=== PATIENT | female | born 1985 | race Caucasian/White ===

== ENCOUNTER 2018-10-30 02:35 | Emergency (ER) | payer BC ==
[2018-10-30] MEDS ORDERED: Ibuprofen TAB* 600 MG PO ONE (02:51)
[2018-10-30] MEDS ORDERED: oxyCODONE/Acetamin 5/325 MG* TAB PO ONE (02:51)
--- NOTE | 2018-10-30 02:55 | ED ---
Upper Extremity Pain - HPI Summary HPI Summary: A 33 y/o female presents to [facility] with a chief complaint of left upper extremity pain since when she slipped and fell on ice, landing on her left elbow , at 22:00 10/29/18. Per triage note, the patient took advil at 02:00 10/30/18. The patient rates her pain as an 8/10 in severity. She claims that she has pain in her wrist up to her shoulder. She is unable to straighten her arm. - History of Current Complaint Chief Complaint: EDExtremityUpper Stated Complaint: ARM INJURY Time Seen by Provider: 10/30/18 02:43 Hx Obtained From: Patient Mechanism Of Injury: Fall From A Standing Position Onset/Duration: Started Hours Ago, Still Present Timing: Constant, Lasting Hours Severity Initially: Severe Severity Currently: Severe Pain Location: Other: - left wrist to her shoulder Character: Unable to Describe Aggravating Factor(s): Nothing Alleviating Factor(s): Nothing Associated Signs & Symptoms: Negative: Fever - Allergies/Home Medications Allergies/Adverse Reactions: Allergies Allergy/AdvReac Type Severity Reaction Status Date / Time No Known Allergies Allergy Verified 10/30/18 02:41 PMH/Surg Hx/FS Hx/Imm Hx Endocrine/Hematology History: Denies: Hx Diabetes Cardiovascular History: Denies: Hx Hypertension - Surgical History Surgery Procedure, Year, and Place: None reported Infectious Disease History: No Infectious Disease History: Denies: Traveled Outside the [place] in Last 30 Days - Family History Known Family History: Positive: Diabetes - paternal grandmother Negative: Hypertension - Social History Alcohol Use: None Hx Substance Use: No Substance Use Type: Reports: None Hx Tobacco Use: No Smoking Status (MU): Never Smoked Tobacco Review of Systems Negative: Fever Positive: Arthralgia - left wrist up to shoulder, Myalgia - left wrist up to shoulder All Other Systems Reviewed And Are Negative: Yes Physical Exam - Summary Physical Exam Summary: VITAL SIGNS: Reviewed. GENERAL: Patient is a well-developed and nourished FEMALE who is lying comfortable in the stretcher. Patient is not in any acute respiratory distress. HEAD AND FACE: No signs of trauma. No ecchymosis, hematomas or skull depressions. No sinus tenderness. EYES: PERRLA, EOMI x 2, No injected conjunctiva, no nystagmus. EARS: Hearing grossly intact. Ear canals and tympanic membranes are within normal limits. MOUTH: Oropharynx within normal limits. NECK: Supple, trachea is midline, no adenopathy, no JVD, no carotid bruit, no c- spine tenderness, neck with full ROM. CHEST: Symmetric, no tenderness at palpation LUNGS: Clear to auscultation bilaterally. No wheezing or crackles. CVS: Regular rate and rhythm, S1 and S2 present, no murmurs or gallops appreciated. ABDOMEN: Soft, non-tender. No signs of distention. No rebound no guarding, and no masses palpated. Bowel sounds are normal. EXTREMITIES: LUE 90 degrees at elbow tender all the way from shoulder to wrist. no edema, no cyanosis or clubbing. NEURO: Alert and oriented x 3. No acute neurological deficits. Speech is normal and follows commands. SKIN: Dry and warm Triage Information Reviewed: Yes Vital Signs On Initial Exam: Initial Vitals Temp Pulse Resp BP Pulse Ox 98.5 F 76 16 125/70 98 10/30/18 02:37 10/30/18 02:37 10/30/18 02:37 10/30/18 02:37 10/30/18 02:37 Vital Signs Reviewed: Yes Procedures - Splinting Left Upper Extremity Hand-Made Type: orthoglass Splint: splint applied left arm extending from wrist to the mid upper arm, elbow is on 90 degrees Pre-Proc Neuro Vasc Exam: normal Post-Proc Neuro Vasc Exam: normal Diagnostics - Vital Signs Vital Signs Temp Pulse Resp BP Pulse Ox 10/30/18 02:37 98.5 F 76 16 125/70 98 - Laboratory Lab Statement: Any lab studies that have been ordered have been reviewed, and results considered in the medical decision making process. - Radiology elbow x-ray Radiology Interpretation Completed By: ED Physician Summary of Radiographic Findings: nondisplaced fracture of radial head. Pending official imaging report. humerus x-ray Radiology Interpretation Completed By: ED Physician Summary of Radiographic Findings: no fracture. Pending official imaging report. forearm x-ray Radiology Interpretation Completed By: ED Physician Summary of Radiographic Findings: no fracture. Pending official imaging report. wrist x-ray Radiology Interpretation Completed By: ED Physician Summary of Radiographic Findings: no fracture. Pending official imaging report. Re-Evaluation - Re-Evaluation First Eval Re-Evaluation Time: 03:35 Change: Improved Comment: splint procedure Course/Dx - Course Course Of Treatment: A 33 y/o female presents to [facility] with a chief complaint of left upper extremity pain since when she slipped and fell on ice, landing on her left elbow, at 22:00 10/29/18. The physical exam revealed that her LUE 90 degrees at elbow tender all the way from shoulder to wrist. In the ED course the patient was given 600mg Motrin PO and Percocet PO. Her left elbow x-ray showed nondisplaced fracture of radial head. Her humerus x-ray, wrist x-ray and forearm x-ray all showed no fracture. Performed a splint application procedure, used ortho glass, splint applied left arm extending from wrist to the mid upper arm, elbow is on 90 degrees. Patients neurovascular exam was intact pre and post application. The patient will be discharged with a prescription for Percocet. The patient was instructed to follow up with lidia Ibanez, today or tomorrow. She is agreeable with this plan. - Diagnoses Provider Diagnoses: Left radial head fracture Discharge - Sign-Out/Discharge Documenting (check all that apply): Patient Departure - DC Patient Received Moderate/Deep Sedation with Procedure: No - Discharge Plan Condition: Stable Disposition: HOME Prescriptions: oxyCODONE/Acetamin 5/325 MG* [Percocet 5/325 TAB*] 1 tab PO Q6H PRN #10 tab MDD 4 PRN Reason: Pain Patient Education Materials: Splint Care (ED) Referrals: Jacob Coleman MD [Medical Doctor] - (1-2 days) Additional Instructions: Follow up with shara Ibanez, today or tomorrow. RETURN TO THE EMERGENCY DEPARTMENT FOR CHANGING OR WORSENING SYMPTOMS. FOLLOW UP WITH PCP IN 1-2 DAYS. - Billing Disposition and Condition Condition: STABLE Disposition: Home - Attestation Statements Document Initiated by Scribe: Yes Documenting Scribe: Felipe Sharma Provider For Whom Kris is Documenting (Include Credential): Colleen Lora MD Scribe Attestation: Felipe Suarez scribed for Colleen Lora MD on 10/30/18 at 0552. Scribe Documentation Reviewed: Yes Provider Attestation: The documentation as recorded by the scribe, Felipe DesRochers accurately reflects the service I personally performed and the decisions made by me, Colleen Lora MD Status of Scribe Document: Viewed
--- OUTSIDE RECORDS SUMMARY | 2018-10-30 03:14 | XMS REPORT | Continuity of Care Document ---
:1985 External Reference #:[id number] Author Name Sona Jeffers M.D. Address [address] [place] [address] Care Team Providers Name Role Phone Sona Jeffers M.D. Care Team Information Voip Network Technician Unavailable Sona Jeffers M.D. Primary Care Physician Unavailable Payers Type Date Identification Numbers Payment Provider Subscriber Effective: 2017 Policy Number: [id number] [employer] Leigh Webb PayID: [id number] [address] [place] [address] Advance Directives Description No Information Available Problems Date Description Provider Status Onset: 09/08/2018 Anorexia nervosa Sona Jeffers M.D. Active Onset: 10/13/2018 Osteoporosis Sona Jeffers M.D. Active Onset: 10/13/2018 Premenopausal idiopathic osteoporosis Sona Jeffers M.D. Active Family History Date Family Member(s) Problem(s) Comments Father No Current Problems Mother Hypothyroidism Siblings 2 Paternal Grandfather due to COPD () Paternal Grandmother Alzheimer's Disease Paternal Grandmother Diabetes Mellitus, II Maternal Grandfather due to Spine injury () Maternal Grandfather Alcoholism Maternal Grandmother Alcoholism Maternal Grandmother Lung Cancer Maternal Grandmother Eating Disorder Aunt Breast Cancer Social History Type Date Description Comments Sex Unknown Education Highest level completed, Doctorate Lives With Boyfriend Diet Healthy, Well Balanced Sleep Reports normal sleep activity Pets 1 cat 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 [employer] Tobacco Use Start: Unknown Nonsmoker ETOH Use Rare Tobacco Use Start: Unknown End: Patient is a former social smoker in 20s Unknown smoker Smoking Status Reviewed: 10/13/18 Patient is a former social smoker in 20s smoker Exercise Exercises regularly walks daily about 5 Type/Frequency miles Allergies, Adverse Reactions, Alerts Description No Known Drug Allergies Medications Medication Date Status Form Strength Qnty SIG Indications Ordering Provider Fish Oil Active Capsules 500mg 1 by mouth Unknown 000 every day Vitamin D3 Active Capsules 2000Unit 1 by mouth Unknown 000 every day Active Tablets 1 po qd Unknown 000 Flaxseed Oil Active Capsules 1000mg 1 by mouth Unknown 000 every day Zinc Active Capsules 1 po qd Unknown 000 Calm Active Liquid 1 tsp Unknown 000 dissolved in liquid qd (magnesium supplement) Medrol Hx TBPK 4mg 1units take dose R21 Susie Allie 019 - pack as Masoud, directed CURB SETTER 019 Alyacen 1/35 Hx Tablets 1-35mg-mcg Unknown 000 - 019 Multi For Her Hx Capsules 1 by mouth Unknown 000 - daily. 019 Calcium 1000 Hx Tablets 1000-800mg 1 by mouth Unknown + D 000 - -Unit every day 019 Immunizations Description No Information Available Vital Signs Date Vital Result Comment 10/13/2018 6:21pm BP Systolic 94 mmHg BP Diastolic 60 mmHg Heart Rate 78 /min Body Temperature 98.2 F Respiratory Rate 16 /min Height 67.25 inches 5'7.25" Weight 117.12 lb BMI (Body Mass Index) 18.2 kg/m2 09/26/2018 10:24am BP Systolic 90 mmHg BP Diastolic 54 mmHg Heart Rate 84 /min Body Temperature 98.4 F Respiratory Rate 16 /min Height 67.25 inches 5'7.25" Weight 114.00 lb BMI (Body Mass Index) 17.7 kg/m2 03/28/2018 1:03pm BP Systolic 90 mmHg BP Diastolic 60 mmHg Heart Rate 76 /min Body Temperature 98.6 F Respiratory Rate 16 /min Height 67.25 inches 5'7.25" Weight 110.00 lb BMI (Body Mass Index) 17.1 kg/m2 12/27/2017 11:10am BP Systolic 96 mmHg BP Diastolic 50 mmHg Heart Rate 78 /min Body Temperature 98.2 F Respiratory Rate 17 /min Height 67.25 inches 5'7.25" Weight 105.00 lb BMI (Body Mass Index) 16.3 kg/m2 Right Visual Acuity Distance 20/40 Left Visual Acuity Distance 20/25 Results Test Date Facility Test Result H/L Range Note Creatinine, 07/07/2018 [facility] Creatinine, 23.0 mg/dL Not Estab. 1 24-Hour Urine [address] [facility] [place] [address] (607)- - Creatinine, Ur 24hr 1035 mg/24hr 800-1800 Calcium, 24HR 07/07/2018 [facility] Calcium, Urine 6.8 mg/dL Not Estab. Urine [address] [place] [address] (607)- - Calcium, Urine 24hr 306.0 mg/24hr High 100.0-300.0 Laboratory test 07/07/2018 [facility] ([facility]) Phosphorus 4.5 mg/dL 2.5 -4.8 finding Creatinine 0.6 mg/dL 0.6-1.4 Laboratory test finding 03/31/2018 [facility] ([facility]) TSH 0.83 mIU/L 0.50-6.00 Comprehensive Metabolic 03/31/2018 [facility] ([facility]) Sodium 136 mEq/L 134-149 Prof Potassium 4.3 mEq/L 3.6-5.5 Chloride 102 mEq/L 94-112 Carbon Dioxide 27 mEq/L 21-32 Glucose 99 mg/dL 70-105 BUN 10 mg/dL 6-26 Creatinine 0.7 mg/dL 0.6-1.4 BUN/Creat Ratio 14.3 CALC 8.0-36.0 Calcium 8.7 mg/dL 8.6-10.2 Total Protein 6.6 g/dL 6.4-8.3 Albumin 4.1 g/dL 3.8-5.5 Globulin 2.5 g/dL 2.0-4.8 A/G Ratio 1.6 CALC 0.6-2.3 Alk. Phosphatase 38 U/L 30-110 Alt (SGPT) 12 U/L 7-35 Ast (Sgot) 15 U/L 5-34 Total Bilirubin 0.3 mg/dL 0.2-1.3 GFR Non- >60 ml/min/1.73m^ >=60 GFR >60 ml/min/1.73m^ >=60 Ua - Micro (Fma) 03/28/2018 [facility] Appearance CLEAR (607)- - Color YELLOW Glucose, Urine (Fma/CMC/CTX) NEG Bilirubin NEG Ketones NEG SP Grav 1.010 Blood NEG PH 5.5 Protein NEG Urobil 0.2 Nitrite NEG Leukocytes (Fma/CMC/Centrex) NEG Hyaline - /Lpf Granular - /Lpf WBC (Fma,[facility]rex) 0-1 # RBC - Mucus - /Lpf Epith RARE /Lpf # Bacteria TRACE /Hpf # Amorphous - /Lpf Crystals, Fluid (Fma/CMC/CTX) - Z#Comments - Laboratory test finding 12/27/2017 [facility] ([facility]) TSH 0.70 mIU/L 0.50-6.00 Free T4 0.91 ng/dL 0.75-1.54 Free T3 1.61 pg/mL Low 2.00-4.90 2 Ua - Micro (Fma) 12/27/2017 [facility] Appearance clear (607)- - Color yellow Glucose, Urine (Fma/CMC/CTX) neg Bilirubin neg Ketones neg SP Grav 1.010 Blood neg PH 7.0 Protein neg Urobil 0.2 Nitrite neg Leukocytes (Fma/CMC/Centrex) neg Hyaline - /Lpf Granular - /Lpf WBC (Fma,[facility]rex) 0-1 # RBC - Mucus (Fma/CBC/Centrex) - /Lpf Epith rare /Lpf # 1 2 24HR URINE COLLECTION J UGS 6N HCL 2 RESULTS VERIFIED BY REPEAT ANALYSIS Procedures Date Code Description Status 03/31/2018 96878 Dxa Bone Density Study One Or More Sites Axial Skeleton Completed 12/27/2017 45623 Vision Test- screening test of visual acuity, Completed quantitative, bila Encounters Type Date Location Provider Dx Diagnosis Office Visit 09/26/2018 Main Office Susie Kelley R21 Rash and other 10:15a SABINA Meredith nonspecific skin eruption Office Visit 03/28/2018 Main Office Susie Kelley R63.6 Underweight 1:00p SABINA Meredith Z13.820 Encounter for screening for osteoporosis R30.0 Dysuria Office Visit 12/27/2017 10:45a Main Office DURAN Cruz R30.0 Dysuria Z83.49 Family history of endo, nutritional and metabolic diseases Plan of Treatment 10/13/2018 - Sona Jeffers M.D.Z00.00 Encounter for general adult medical examination without abnormal findingsNew Labs:CBC Electronic-[facility], Ordered: 10/13/18Comp Metabolic-[facility], Ordered: 10/13/18Lipid Panel- [facility], Ordered: 10/13/18Ua - Non Micro (Fma), Ordered: 10/13/18TSH ( [facility]), Ordered: 10/13/18Comments:Encourage an active and healthy lifestyle with proper eating habits including fruits, vegetables, 6-8 glasses of water a day and monitoring portion size. Recommend 30 minutes of daily physical activityincluding walking, aerobic exercise, sports, yoga or dance. Any activity is better than no activity.Recommend routine eye and dental exams. Next physical is due in 1-2 years.Follow up:fasting labsR63.6 UnderweightComments:continue yuvtacfA41.8 Other osteoporosis without current pathological fractureNew Labs:Vitamin D, 25Hydroxy(a/LC, Ordered: Magnesium ([facility]), Ordered: 10/13/18Phosphorus, Ordered: Comments:seeing specialists ; dexa due 03/20192868P25.10 Unspecified dyspareuniaComments:consider pelvic PT; cannot take ocp currently due to osteoporosis and trying pregnancyAllComments:~B_~U_Medication Management~b_~u_ Patient Understands medications she's taking? Yes No Are there Barriers to Adherence? Yes No Has the patient been asked about herbal supplements and therapies, and OTC meds? Yes No
[2018-10-30 04:20] VITALS: BP 121/87
== END 2018-10-30 04:18 | disposition home or self-care (01) ==
LOC: ED 02:35
DX: S52.122A Displaced fracture of head of left radius, initial encounter for closed fracture (principal); M25.522 Pain in left elbow; W00.0XXA Fall on same level due to ice and snow, initial encounter; Y92.9 Unspecified place or not applicable; M25.512 Pain in left shoulder
CPT/HCPCS: 99282; A9270-GY

== ENCOUNTER 2019-11-04 11:17 | Emergency (ER) | payer BC ==
--- OUTSIDE RECORDS SUMMARY | 2019-11-04 11:40 | XMS REPORT | Continuity of Care Document ---
:1985 External Reference #:[id number] Author Name Sona Jeffers M.D. Address [address] [place] [address] Care Team Providers Name Role Phone Sona Jeffers M.D. - Family Medicine Care Team Information Unit Aide Tech [phone] Problems Active Problems Provider Date Anorexia nervosa Sona Jeffers M.D. Onset: 09/08/2018 Osteoporosis Sona Jeffers M.D. Onset: 10/13/2018 Anxiety state Sona Jeffers M.D. Onset: 05/26/2019 Premenopausal idiopathic osteoporosis Sona Jeffers M.D. Onset: 10/13/2018 Social History Type Date Description Comments Sex Unknown Tobacco Use Start: Unknown Nonsmoker ETOH Use Rare Tobacco Use Start: Unknown End: Patient is a former social smoker in 20s Unknown smoker Smoking Status Reviewed: 10/06/19 Patient is a former social smoker in 20s smoker Exercise Exercises regularly walks daily about 5 Type/Frequency miles Allergies, Adverse Reactions, Alerts Description No Known Drug Allergies Medications Active Medications SIG Qnty Indications Ordering Provider Date Fish Oil 1 by mouth every Unknown 500mg Capsules day Vitamin D3 1 by mouth every Unknown 2000Unit day Capsules 1 po qd Unknown Tablets Calm 1 tsp dissolved in Unknown Liquid liquid qd (magnesium supplement) Calcium Unknown Methyl Folate Unknown History Medications Azithromycin z tushar as 6tabs J20.9 Susie Kelley 10/06/2019 - 250mg directed, 2 tabs SABINA Meredith 10/13/2019 Tablets day one, one tab day 2-5 Tessalon Perles take 2 tablets 30caps J20.9 Susie Ann 10/06/2019 - 100mg every 8 hours as SABINA Meredith 10/13/2019 Capsules needed for cough Alyacen 1/35 Take 1 Tablet By 84tabs Sona Jeffers, 05/26/2019 - 1-35mg-mcg Mouth Every Day M.D. 10/06/2019 Tablets Immunizations CPT Code Status Date Vaccine Lot # [id number] Given 08/14/2019 Influenza vac quadrivalent preservative free 6 [id number] months and up Vital Signs Date Vital Result Comment 10/26/2019 7:16pm BP Systolic 98 mmHg BP Diastolic 60 mmHg Heart Rate 72 /min Body Temperature 98.1 F Respiratory Rate 16 /min Height 67 inches 5'7" per pt Weight 113.12 lb BMI (Body Mass Index) 17.7 kg/m2 10/06/2019 8:59am BP Systolic 92 mmHg BP Diastolic 62 mmHg Heart Rate 100 /min Body Temperature 98.6 F Respiratory Rate 16 /min Height 67 inches 5'7" per pt Weight 114.00 lb BMI (Body Mass Index) 17.9 kg/m2 Results Description No Information Available Procedures Date Code Description Status 04/27/2019 05148 Dxa Bone Density Study One Or More Sites Axial Skeleton Completed Medical Devices Description No Information Available Encounters Type Date Location Provider Dx Diagnosis Office Visit 10/06/2019 Main Office Susie Kelley J20.9 Acute bronchitis, 9:00a SABINA Meredith unspecified Office Visit 05/26/2019 Main Office Sona Jeffers M.D. M81.8 Other osteoporosis 3:40p without current pathological fracture R63.6 Underweight Z30.09 Encounter for oth general coun and advice on contraception F41.9 Anxiety disorder, unspecified Assessments Date Code Description Provider 10/26/2019 M81.8 Other osteoporosis without current Sona Jeffers M.D. pathological fracture 10/26/2019 R63.6 Underweight Sona Jeffers M.D. 10/26/2019 Z33.1 state, incidental Sona Jeffers M.D. 10/06/2019 J20.9 Acute bronchitis, unspecified Susie Meredith NP 08/14/2019 Z23 Encounter for immunization Sona Jeffers M.D. 05/26/2019 M81.8 Other osteoporosis without current Sona Jeffers M.D. pathological fracture 05/26/2019 R63.6 Underweight Sona Jeffers M.D. 05/26/2019 Z30.09 Encounter for other general counseling and Sona Jeffers M.D. advice on contraception 05/26/2019 F41.9 Anxiety disorder, unspecified Sona Jeffers M.D. 04/27/2019 M81.8 Other osteoporosis without current Sona Jeffers M.D. pathological fracture Plan of Treatment 10/26/2019 - Sona Jeffers M.D.M81.8 Other osteoporosis without current pathological fractureComments:seeing [id number] ZprfcitkxbcK55.1 state, incidentalComments: precautions discussed with diet, exercise and medications. Miscarriage precautions reviewedRecommend vitamin daily.AllComments:Medication Management Patient Understands medications she's taking? Yes No Are there Barriers to Adherence? Yes No Has the patient been asked about herbal supplements and therapies, and OTC meds? Yes No Functional Status Description No Information Available Mental Status Description No Information Available Referrals Description No Information Available
--- OUTSIDE RECORDS SUMMARY | 2019-11-04 11:40 | XMS REPORT | Continuity of Care Document ---
:1985 External Reference #:[id number] Author Name Susie Meredith NP Address [address] [id number] Care Team Providers Name Role Phone Sona Jeffers M.D. - Family Medicine Care Team Information Registered Public Surveyor Unavailable Problems Active Problems Provider Date Anorexia nervosa [...] Medications Active Medications SIG Qnty Indications Ordering Date Provider Cameron finley as directed, 6tabs J20.9 Susie Kelley 10/06/2019 250mg 2 tabs day one, SABINA Meredith Tablets one tab day 2-5 Tessalon Perles take 2 tablets 30caps J20.9 Susie Kelley 10/06/2019 100mg every 8 hours as SABINA Meredith Capsules needed for cough Fish Oil 1 by mouth every Unknown 500mg Capsules day Vitamin D3 1 by mouth every Unknown 2000Unit day Capsules 1 po qd Unknown Tablets Calm 1 tsp dissolved in Unknown Liquid liquid qd (magnesium supplement) Lorazepam 1 by mouth at Unknown 0.5mg Tablets bedtime prn Calcium Unknown History Medications Alyacen Take 1 Tablet By 84tabs Sona Jeffers M.D. 05/26/2019 - 1-35mg-mcg Mouth Every Day 10/06/2019 Tablets Immunizations CPT Code Status Date Vaccine Lot # [id number] Given 08/14/2019 Influenza vac quadrivalent preservative free 6 [id number] months and up Vital Signs Date Vital Result Comment 10/06/2019 8:59am BP Systolic 92 mmHg BP Diastolic 62 mmHg Heart Rate 100 /min Body Temperature 98.6 F Respiratory Rate 16 /min Height 67 inches 5'7" per pt Weight 114.00 lb BMI (Body Mass Index) 17.9 kg/m2 05/26/2019 3:54pm BP Systolic 80 mmHg BP Diastolic 60 mmHg Heart Rate 72 /min Body Temperature 99.1 F Respiratory Rate 12 /min Height 67 inches 5'7" per pt Weight 119.00 lb BMI (Body Mass Index) 18.6 kg/m2 Results Description No Information Available Procedures Date Code Description Status 04/27/2019 52844 Dxa Bone Density Study One Or More Sites Axial Skeleton Completed Medical Devices Description No Information Available Encounters Type Date Location Provider Dx Diagnosis Office Visit 05/26/2019 Main Office Sona Jeffers M.D. M81.8 Other osteoporosis 3:40p without current pathological fracture R63.6 Underweight Z30.09 Encounter for oth general coun and advice on contraception F41.9 Anxiety disorder, unspecified Assessments Date Code Description Provider 10/06/2019 J20.9 Acute bronchitis, unspecified Susie Meredith, SABINA 08/14/2019 Z23 Encounter for immunization Sona Jeffers M.D. 05/26/2019 M81.8 Other osteoporosis without current Sona Jeffers M.D. pathological fracture 05/26/2019 R63.6 Underweight Sona Jeffers M.D. 05/26/2019 Z30.09 Encounter for other general counseling and Sona Jeffers M.D. advice on contraception 05/26/2019 F41.9 Anxiety disorder, unspecified Sona Jeffers M.D. 04/27/2019 M81.8 Other osteoporosis without current Sona Jeffers M.D. pathological fracture Plan of Treatment Future Appointment(s):11/19/2019 10:00 am - Sona Jeffers M.D. at [id number] - Susie Meredith NPJ20.9 Acute bronchitis, unspecifiedNew Medication:Azithromycin 250 mg - z tushar as directed, 2 tabs day one, one tab day 2-5Tessalon Perles 100 mg - take 2 tablets every 8 hours as needed for coughComments:patient was instructed to call or return if symptoms did not improve Call or return if you develop new fever, trouble breathing, sudden worsening, or pain in the ears, face, or chest . While the symptoms of upper respiratory infections are uncomfortable and can take a long time to go away, they rarely present significant danger. Use a humidifier at night and drink plenty of fluids during the day. Ibuprofen or tylenol are good for headaches and sore throats. Other cough and cold remedies, such as guaifenesin or phenylephrine, will not help you get better any faster. They can temporarily help with symptoms, but you should only continue to take them if you actually experience some relief within a couple hours of taking a dose. It is normal to cough for 2-3 weeks. You should be re-evaluated at the office if your cough persists longer or if you have a cough with fever, wheezing, or worsening pain.AllComments:Medication Management Patient Understands medications he 's taking? Yes No Are there Barriers to Adherence? Yes No Has the patient been asked about herbal supplements and therapies, andOTC meds? Yes No Care Plan1. Patient has been queried about patient's goals/ preferences and functional/lifestyle goals at relevant visits. If relevant, describe: na2. Treatment goals as explained to the patient: above3. Are there barriers to meeting treatment goals? Yes No If Yes, please describe:4. Self-Management goals as described to the patient: Yes NoAs always, we strongly encourage a healthy diet and making physical activity a part of your every day life. If you have questions about how or where to start, please contact the office. Functional Status Description No Information Available Mental Status Description No Information Available Referrals Description No Information Available
[2019-11-04 12:56] LABS: ABS Eosinophils 0.1 10^3/ul (0-0.6); ABS Lymphocytes 2.9 10^3/ul (1.0-4.8); ABS Monocytes 0.7 10^3/ul (0-0.8); ABS Neutrophils 4.6 10^3/ul (1.5-7.7); Eosinophil % 0.9 %; Hematocrit 37 % (35-47); Hemoglobin 12.5 g/dL (12.0-16.0); Lymphocyte % 35.5 %; Mean Corpuscular HGB Conc 34 g/dL (31-36); Mean Corpuscular Hemoglobin 30 pg (27-31); Mean Corpuscular Volume 88 fL (80-97); Mean Platelet Volume 7.3 fL (7.4-10.4); Nucleated Red Blood Cells % 0.2; Platelet Count 338 10^3/uL (150-450); Red Blood Count 4.18 10^6 /uL (3.70-4.87); Red Cell Distribution Width 12 % (10-15); White Blood Count 8.3 10^3/uL (3.5-10.8)
[2019-11-04 13:15] LABS: Albumin 4.5 g/dL (3.2-5.2); Albumin/Globulin Ratio 1.6 (1-3); BUN/Creatinine Ratio 26.4 (8-20); Calcium 9.2 mg/dL (8.6-10.3); EGFR African American 160.8 (>60); EGFR Non-African American 132.9 (>60); Globulin 2.9 g/dL (2-4); Potassium 3.8 mmol/L (3.5-5.0); Total Bilirubin 0.5 mg/dL (0.2-1.0); Total Protein 7.4 g/dL (6.4-8.9)
--- NOTE | 2019-11-04 14:41 | ED ---
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 Patient reports being 6 weeks . Her ASSISTANT DIRECTOR OF PUBLIC WORKS can't get her in until she is 9 weeks . Last known menstrual period was September 17 2019. Patient reports diziness, near syncope when standing, and emesis. Patient denies vaginal bleeding or discharge or diarrhea. The patient rates the pain 6/10 in severity. Symptoms aggravated by nothing. Symptoms alleviated by nothing. Medications reviewed. Allergies noted. Home Medications Medication Instructions Recorded Confirmed Type oxyCODONE/Acetamin 5/325 MG* 1 tab PO Q6H PRN #10 tab MDD 4 10/30/18 Rx [Percocet 5/325 TAB*] - History of Current Complaint Chief Complaint: EDOBProblems Time Seen by Provider: 11/04/19 14:22 Stated Complaint: 6 WEEKS PREG/ CRAMPS AND DIZZINESS PER PT Hx Obtained From: Patient Onset/Duration: Started Days Ago, Still Present Pain Intensity: 6 Associated Signs and Symptoms: Positive: Dizziness, Vomiting, Other: - positive - near syncope when standing, cramps. negative - vaginal bleeding and discharge. Negative: Diarrhea - Allergy/Home Medications Allergies/Adverse Reactions: Allergies Allergy/AdvReac Type Severity Reaction Status Date / Time No Known Allergies Allergy Verified 11/04/19 11:34 Home Medications: Home Medications oxyCODONE/Acetamin 5/325 MG* [Percocet 5/325 TAB*] 1 tab PO Q6H PRN #10 tab MDD 4 10/30/18 [Rx] PMH/Surg Hx/FS Hx/Imm Hx Endocrine/Hematology History: Denies: Hx Diabetes Cardiovascular History: Denies: Hx Hypertension - Surgical History Surgery Procedure, Year, and Place: None reported - Immunization History Immunizations Up to Date: Yes Infectious Disease History: No Infectious Disease History: Reports: Traveled Outside the [place] in Last 30 Days - [place] - Family History Known Family History: Positive: Diabetes - paternal grandmother Negative: Hypertension - Social History Alcohol Use: None Hx Substance Use: No Substance Use Type: Reports: None Hx Tobacco Use: No Smoking Status (MU): Never Smoked Tobacco Review of Systems Positive: Vomiting. Negative: Diarrhea Genitourinary: Negative - negative - vaginal bleeding Positive: other - cramps. Negative: discharge - no vaginal discharge Neurological/Mental Status: Other - dizziness Negative: Syncope - near syncope when standing All Other Systems Reviewed And Are Negative: Yes Physical Exam - Summary Physical Exam Summary: Constitutional: Well-developed, Well-nourished, Alert. (-) Distressed Skin: Warm, Dry HENT: Normocephalic; Atraumatic Eyes: Conjunctiva normal Neck: Musculoskeletal ROM normal neck. (-) JVD, (-) Stridor, (-) Tracheal deviation Cardio: Rhythm regular, rate normal, Heart sounds normal; Intact distal pulses; Radial pulses are 2+ and symmetric. (-) Murmur Pulmonary/Chest wall: Effort normal. (-) Respiratory distress, (-) Wheezes, (-) Rales Abd: Soft, (-) tenderness, (-) Distension, (-) Guarding, (-) Rebound Musculoskeletal: (-) Edema Lymph: (-) Cervical adenopathy Neuro: Alert, Oriented x3 Psych: Mood and affect Normal Triage Information Reviewed: Yes Vital Signs On Initial Exam: Initial Vitals Temp Pulse Resp BP Pulse Ox 98.0 F 97 20 98/67 99 11/04/19 11:31 11/04/19 11:31 11/04/19 11:31 11/04/19 11:31 11/04/19 11:31 Vital Signs Reviewed: Yes Procedures - Sedation Patient Received Moderate/Deep Sedation with Procedure: No Diagnostics - Vital Signs Vital Signs Temp Pulse Resp BP Pulse Ox 11/04/19 11:31 98.0 F 97 20 98/67 99 - Laboratory Lab Results: Lab Results 11/04/19 11/04/19 Range/Units 12:37 12:37 WBC 8.3 (3.5-10.8) 10^3/uL RBC 4.18 (3.70-4.87) 10^6 /uL Hgb 12.5 (12.0-16.0) g/dL Hct 37 (35-47) % MCV 88 (80-97) fL MCH 30 (27-31) pg MCHC 34 (31-36) g/dL RDW 12 (10-15) % Plt Count 338 (150-450) 10^3/uL MPV 7.3 L (7.4-10.4) fL Neut % (Auto) 55.1 % Lymph % (Auto) 35.5 % [place] % (Auto) 8.0 % Eos % (Auto) 0.9 % Baso % (Auto) 0.5 % Absolute Neuts (auto) 4.6 (1.5-7.7) 10^3/ul Absolute Lymphs (auto) 2.9 (1.0-4.8) 10^3/ul Absolute Monos (auto) 0.7 (0-0.8) 10^3/ul Absolute Eos (auto) 0.1 (0-0.6) 10^3/ul Absolute Basos (auto) 0.0 (0-0.2) 10^3/ul Absolute Nucleated RBC 0.0 10^3/ul Nucleated RBC % 0.2 Sodium 134 L (135-145) mmol/L Potassium 3.8 (3.5-5.0) mmol/L Chloride 101 (101-111) mmol/L Carbon Dioxide 25 (22-32) mmol/L Anion Gap 8 (2-11) mmol/L BUN 14 (6-24) mg/dL Creatinine 0.53 (0.51-0.95) mg/dL Est GFR ( Amer) 160.8 (>60) Est GFR (Non-Af Amer) 132.9 (>60) BUN/Creatinine Ratio 26.4 H (8-20) Glucose 85 (70-100) mg/dL Calcium 9.2 (8.6-10.3) mg/dL Total Bilirubin 0.50 (0.2-1.0) mg/dL AST 15 (13-39) U/L ALT 13 (7-52) U/L Alkaline Phosphatase 55 (34-104) U/L Total Protein 7.4 (6.4-8.9) g/dL Albumin 4.5 (3.2-5.2) g/dL Globulin 2.9 (2-4) g/dL Albumin/Globulin Ratio 1.6 (1-3) Beta HCG, Quant 53464.00 mIU/mL Result Diagrams: 11/04/19 12:37 11/04/19 12:37 Lab Statement: Any lab studies that have been ordered have been reviewed, and results considered in the medical decision making process. - Ultrasound Transvaginal US Ultrasound Interpretation Completed By: Radiologist Summary of Ultrasound Findings: IMPRESSION: Single intrauterine gestation with a gestational age of 6 weeks 2 days. Estimated date of delivery of June 27, 2020. No adnexal masses are noted. has reviewed this report. GIGU Course/Dx - Course Course Of Treatment: Patient is here with one week of abdominal cramping the setting of . Patient has not been evaluated for yet. Patient has no vaginal bleeding. Patient is overall well-appearing on exam no tenderness. Patient had an old shunt performed which showed an intrauterine . Patient had blood performed which was grossly unremarkable. Patient was encouraged to follow up with her ASSISTANT DIRECTOR OF PUBLIC WORKS. - Diagnoses Provider Diagnoses: , Uterine cramping Discharge ED - Sign-Out/Discharge Documenting (check all that apply): Patient Departure - discharge - Discharge Plan Condition: Stable Disposition: HOME Patient Education Materials: (ED) Referrals: Dorota Trinidad MD [Medical Doctor] - 3 Days Additional Instructions: Please follow up with , ASSISTANT DIRECTOR OF PUBLIC [employer]KS within 3 days. Return to the ED for any new or worsening symptoms. - Billing Disposition and Condition Condition: STABLE Disposition: Home - Attestation Statements Document Initiated by Scribe: Yes Documenting Scribe: Rodolfo Cabrera Provider For Whom Kris is Documenting (Include Credential): Dallas Gunn MD Scribe Attestation: I, Rodolfo Cabrera, scribed for Dallas Gnun MD on 11/04/19 at 1834. Scribe Documentation Reviewed: Yes Provider Attestation: The documentation as recorded by the maryibe, Rodolfo Cabrera accurately reflects the service I personally performed and the decisions made by me, Dallas Gunn MD Status of Scribe Document: Viewed
[2019-11-04 16:37] VITALS: BP 96/55
== END 2019-11-04 16:37 | disposition home or self-care (01) ==
LOC: ED 11:17
DX: O26.891 Other specified pregnancy related conditions, first trimester (principal); N94.89 Other specified conditions associated with female genital organs and menstrual cycle; R42 Dizziness and giddiness; R11.10 Vomiting, unspecified; Z3A.01 Less than 8 weeks gestation of pregnancy
CPT/HCPCS: 36415; 76817; 80053; 84702; 85025; 99282